=== PATIENT | female | born 1985 | race Caucasian/White ===

== ENCOUNTER 2016-08-23 17:26 | Emergency (ER) | payer BC ==
[2016-08-23 20:01] VITALS: BP 111/80
[2016-08-23] MEDS ORDERED: predniSONE TAB* 20 MG PO ONE (20:16)
[2016-08-23] MEDS ORDERED: DOXYcycline CAP(*) 100 MG PO ONE (20:16)
--- NOTE | 2016-08-23 20:17 | UC ---
Skin Complaint HPI - HPI Summary HPI Summary: worsening pain and erythema from 2 bug bites on left lateral lower leg 2 days ago - History of Current Complaint Chief Complaint: [facility] Time Seen by Provider: 08/23/16 19:51 Stated Complaint: BUG BITE Hx Obtained From: Patient Hx Last Menstrual Period: 08/23/16 ?: No Onset/Duration: Sudden Onset, Lasting Days - 2 Skin Exposure Onset/Duration: Days Ago - 2 Timing: Constant Onset Severity: Mild Current Severity: Moderate Location: Discrete Character: Pain, Redness Aggravating: Nothing Alleviating: Nothing Associated Signs & Symptoms: Positive: Negative Related History: Insect Bite/Sting - Allergy/Home Medications Allergies/Adverse Reactions: Allergies Allergy/AdvReac Type Severity Reaction Status Date / Time Codeine Allergy Severe SYNCOPE Verified 08/23/16 20:01 Latex Allergy Severe RASH, Verified 08/23/16 20:01 SWELLING Penicillins Allergy Severe Rash Verified 08/23/16 20:01 Sulfa Drugs Allergy Severe Rash Verified 08/23/16 20:01 DILATING EYE DROPS Allergy Severe SYNCOPE Uncoded 08/23/16 20:01 Review of Systems Constitutional: Negative Skin: Rash - erythema left lower lateral leg Eyes: Negative ENT: Negative Respiratory: Negative Cardiovascular: Negative Gastrointestinal: Negative Genitourinary: Negative Motor: Negative Neurovascular: Negative Musculoskeletal: Negative Neurological: Negative Psychological: Negative All Other Systems Reviewed And Are Negative: Yes PMH/Surg Hx/FS Hx/Imm Hx Previously Healthy: Yes - Surgical History Surgical History: None - Family History Known Family History: Positive: Cardiac Disease, Diabetes - Social History Occupation: Employed Full-time Lives: With Family Alcohol Use: Occasionally Substance Use Type: None Smoking Status (MU): Never Smoked Tobacco Physical Exam Triage Information Reviewed: Yes Appearance: Well-Appearing, No Pain Distress, Well-Nourished Vital Signs: Initial Vital Signs Temp 99.8 F 08/23/16 19:55 Pulse 77 08/23/16 19:55 Resp 15 08/23/16 19:55 BP 111/80 08/23/16 19:55 Pulse Ox 99 08/23/16 19:55 Vital Signs Reviewed: Yes Eye Exam: Normal Eyes: Positive: Conjunctiva Clear ENT Exam: Normal ENT: Positive: Normal ENT inspection, Hearing grossly normal. Negative: Nasal congestion, Nasal drainage, Trismus, Muffled/hoarse voice Neck exam: Normal Neck: Positive: Supple, Nontender Respiratory Exam: Normal Respiratory: Positive: Chest non-tender, No respiratory distress, No accessory muscle use Cardiovascular Exam: Normal Cardiovascular: Positive: RRR, No Murmur, Pulses Normal, Brisk Capillary Refill Musculoskeletal Exam: Normal Musculoskeletal: Positive: Strength Intact, ROM Intact, No Edema Neurological Exam: Normal Neurological: Positive: Alert, Muscle Tone Normal Psychological Exam: Normal Skin Exam: Other Skin: Positive: Other - erythema left lower lateral leg Course/Dx - Course Course Of Treatment: Warm compress, doxycycline, prednisone follow with pcp - Differential Diagnoses - Skin Complaint Differential Diagnoses: Allergic Reaction, Cellulitis, Local Allergic Reaction, Systemic Illness, Tick Born Illness - Diagnoses Provider Diagnoses: Cellulitis left lower leg Discharge - Discharge Plan Condition: Stable Disposition: HOME Prescriptions: DOXYcycline CAP(*) [DOXYcycline 100MG CAP(*)] 100 mg PO BID #20 cap predniSONE TAB* [Deltasone TAB*] 50 mg PO DAILY #3 tab Patient Education Materials: Doxycycline (By mouth), Prednisone (By mouth), Diphenhydramine (By mouth), Insect Bite or Sting (ED) Referrals: [facility] [Outside] - If Needed
== END 2016-08-23 20:23 | disposition home or self-care (01) ==
LOC: UCCORT 17:26
DX: L03.116 Cellulitis of left lower limb (principal); Z88.0 Allergy status to penicillin; Z88.2 Allergy status to sulfonamides; Z88.5 Allergy status to narcotic agent; Z91.040 Latex allergy status
CPT/HCPCS: 99212; A9270-GY; G0463; J7512